=== PATIENT | female | born 1990 | race Caucasian/White ===

== ENCOUNTER 2019-05-19 05:11 | Inpatient (IN) ==
[2019-05-19] MEDS ORDERED: STADOL IV PRN (05:19)
[2019-05-19] MEDS ORDERED: ZOFRAN IV PRN (05:19)
[2019-05-19] MEDS ORDERED: TYLENOL PO PRN (05:19)
[2019-05-19] MEDS ORDERED: PEPCID IV PRN (05:19)
[2019-05-19] MEDS ORDERED: PEPCID PO PRN ×2 (05:19)
[2019-05-19] MEDS ORDERED: REGLAN PO PRN (05:19)
[2019-05-19] MEDS ORDERED: MINERAL OIL TOP PRN (05:23)
[2019-05-19] MEDS ORDERED: XYLOCAINE-MPF 1% INJ PRN ×2 (05:23→11:58)
[2019-05-19] MEDS ORDERED: PITOCIN 30 UNITS/NS 30 UNIT/500 ML IV.SOLN IV SCH ×2 (05:30→12:00)
[2019-05-19] MEDS ORDERED: SODIUM CHLORIDE 0.9% INJ SCH (05:30)
[2019-05-19 05:40] LABS: URINE SOURCE VOIDED
[2019-05-19 05:43] LABS: BILIRUBIN URINE NEGATIVE (NEGATIVE); BLOOD URINE NEGATIVE (NEGATIVE); COLOR STRAW; GLUCOSE URINE NEGATIVE (NEGATIVE); KETONE URINE NEGATIVE (NEGATIVE); LEUKOCYTES URINE NEGATIVE (NEGATIVE); NITRITE URINE NEGATIVE (NEGATIVE); PH URINE 6.5; PROTEIN URINE NEGATIVE (NEGATIVE); SP GRAVITY URINE 1.008; TURBIDITY URINE CLEAR (CLEAR); UROBILINOGEN URINE NORMAL (NORMAL)
[2019-05-19] MEDS: LR 1,000 ML IV SCH ×3 (05:45→11:07)
[2019-05-19 05:53] LABS: UR AMPHETAMINES QUAL NONE DETECTED (NONE DETECT); UR BARBITUATES QUAL NONE DETECTED (NONE DETECT); UR BENZODIAZEPIN QUAL NONE DETECTED (NONE DETECT); UR CANNABINOIDS QUAL NONE DETECTED (NONE DETECT); UR COCAINE QUAL NONE DETECTED (NONE DETECT); UR METHADONE QUAL NONE DETECTED (NONE DETECT); UR OPIATES QUAL NONE DETECTED (NONE DETECT); UR OXYCODONE QUAL NONE DETECTED (NONE DETECT); UR PCP QUAL NONE DETECTED (NONE DETECT)
[2019-05-19 06:11] LABS: BASO# 0.02 X1000 (0.0-0.2); BASO% 0.2 % (0.0-0.8); EOS# 0.07 X1000 (0.0-0.7); EOS% 0.8 % (0.0-10.0); HEMOGLOBIN 10.5 g/dL (12.0-16.0); IMM GRAN# 0.03 X1000 (0.0-0.04); IMM GRAN% 0.4 % (0.0-0.5); LYMPH# 2.18 X1000 (1.2-3.4); LYMPH% 26.4 % (20.5-51.1); MCH 27.9 PG (27-31); MCHC 31.8 g/dL (33-37); MCV 87.5 FL (81-99); MONO# 0.46 X1000 (0.11-0.59); MONO% 5.6 % (1.7-9.3); MPV 11.6 FL (7.4-10.4); NEUT# 5.51 X1000 (1.4-6.5); NEUT% 66.6 % (42.2-75.2); PLT 194 X1000 (130-400); RBC 3.77 XMIL (4.2-5.4); RDW 13.9 % (11.5-14.5); WBC 8.27 X1000 (4.8-10.8)
[2019-05-19] MEDS ORDERED: NAROPIN 0.2% INJ ONE (07:45)
[2019-05-19] MEDS ORDERED: NEO-SYNEPHRINE INJ ONE (07:45)
[2019-05-19] MEDS ORDERED: FENTANYL IV ONE (07:45)
--- NOTE | 2019-05-19 07:57 | HISTORY AND PHYSICAL ---
HISTORY OF PRESENT ILLNESS: The patient is a 29-year-old white female, G 10, P 5, A 4 at 39 weeks gestation with a favorable cervix, who was scheduled for induction of labor. Group B strep culture was negative. care significant for late care, otherwise unremarkable. Rh type was positive. PAST MEDICAL HISTORY: Unremarkable. PAST SURGICAL HISTORY: None. PAST OB HISTORY: G 10, P 5, A 4. Five spontaneous vaginal deliveries. POSTPARTUM RN HISTORY: Menarche at age 12. REVIEW OF SYSTEMS: Significant for asthma. FAMILY HISTORY: Significant for diabetes, heart disease, breast cancer, pancreatic cancer, colon cancer. SOCIAL HISTORY: Tobacco use: 5 cigarettes per day. Alcohol use: None. MEDICATIONS: Celexa 20 mg daily, vitamin. ALLERGIES: Penicillin. PHYSICAL EXAMINATION: VITAL SIGNS: Height 5 feet 5 inches, weight 164 pounds, temperature 97.0 degrees, blood pressure 122/72, pulse 60, respirations 18, heart rate in the 130s with positive accelerations. HEENT: Pupils equal, round, reactive to light and accommodation. Extraocular movements intact. Oropharynx clear. NECK: Supple. No thyromegaly. LUNGS: Clear to auscultation. HEART: Regular rate and rhythm. ABDOMEN: Gravid, nontender. Cervix was 3 cm dilated, 90% effaced, -2 station. The patient had a spontaneous rupture of membranes with clear fluid at 0710 hours on 05/19/2019. EXTREMITIES: No clubbing, cyanosis or edema noted. NEUROLOGIC: Cranial nerves 2-12 grossly intact. Motor 5/5. DTRs 2+ bilaterally. Hemoglobin on her initial labs was noted to be low at 10.5. ASSESSMENT: 1. A 29-year-old, white female, 10, para 5, abortus 4 at 39 weeks gestation for induction of labor with spontaneous rupture of membranes. Anticipate vaginal delivery. Patient may have epidural when desired. 2. Tobacco use. 3. Anemia. PLAN: lron after delivery. cc: Shakeel Elizabeth III, MD
[2019-05-19] MEDS ORDERED: FENTANYL-BUPIV-NS 500 MCG-0.125% 250 ML EPIDURAL SCH (08:00)
[2019-05-19] MEDS ORDERED: ATARAX PO PRN (11:58)
[2019-05-19] MEDS ORDERED: NORCO-5 PO PRN (11:58)
[2019-05-19] MEDS ORDERED: PITOCIN IM PRN (11:58)
[2019-05-19] MEDS ORDERED: CYTOTEC PO PRN (11:58)
[2019-05-19] MEDS ORDERED: MINERAL OIL PO PRN (11:58)
[2019-05-19] MEDS ORDERED: PERI MEDS (DERMOPLAST/NUPERCAINAL/TUCKS) MISC PRN (11:58)
[2019-05-19] MEDS ORDERED: BOOSTRIX VACCINE IM ONE (11:58)
[2019-05-19] MEDS ORDERED: BENADRYL IV PRN (11:58)
[2019-05-19] MEDS ORDERED: M-M-R II VACCINE SUBQ ONE (11:58)
[2019-05-19] MEDS ORDERED: HYDROXYZINE IM PRN (11:58)
[2019-05-19] MEDS ORDERED: AMBIEN PO PRN (11:58)
[2019-05-19] MEDS ORDERED: BENADRYL PO PRN (11:58)
[2019-05-19] MEDS ORDERED: PITOCIN 20 UNITS/NS 20 UNITS/1,000 ML IV.SOLN IV SCH (12:00)
--- NOTE | 2019-05-19 12:46 | OPERATIVE NOTE ---
PROCEDURE DATE: 05/19/2019 DELIVERY NOTE: The patient progressed to complete pushing, and had spontaneous vaginal delivery of a male infant, 7 pounds 13 ounces, with Apgars of 8 and 9 at 11:43 on 05/19/2019 over intact perineum. Cord blood sample was obtained at this time. Placenta was delivered intact with 3- vessel cord. ANESTHESIA: Epidural. ESTIMATED BLOOD LOSS: 200 mL. cc: Shakeel Elizabeth III, MD
[2019-05-19] MEDS: NORCO-10 PO PRN ×2 (14:41→23:44)
[2019-05-19] MEDS: MOTRIN PO PRN ×2 (14:42→23:44)
[2019-05-19] MEDS: PERICOLACE PO SCH (23:44)
[2019-05-20 04:59] LABS: BASO# 0.02 X1000 (0.0-0.2); BASO% 0.2 % (0.0-0.8); EOS# 0.15 X1000 (0.0-0.7); EOS% 1.7 % (0.0-10.0); HEMATOCRIT 32.6 % (37.0-47.0); HEMOGLOBIN 10.4 g/dL (12.0-16.0); IMM GRAN# 0.02 X1000 (0.0-0.04); IMM GRAN% 0.2 % (0.0-0.5); LYMPH# 2.69 X1000 (1.2-3.4); LYMPH% 30.5 % (20.5-51.1); MCH 28.2 PG (27-31); MCHC 31.9 g/dL (33-37); MCV 88.3 FL (81-99); MONO# 0.46 X1000 (0.11-0.59); MONO% 5.2 % (1.7-9.3); MPV 11.7 FL (7.4-10.4); NEUT# 5.49 X1000 (1.4-6.5); NEUT% 62.2 % (42.2-75.2); PLT 176 X1000 (130-400); RBC 3.69 XMIL (4.2-5.4); RDW 13.9 % (11.5-14.5); WBC 8.83 X1000 (4.8-10.8)
[2019-05-20] MEDS: MOTRIN PO PRN ×2 (08:19→15:58)
[2019-05-20] MEDS: NORCO-10 PO PRN ×3 (08:20→21:43)
[2019-05-20] MEDS: CELEXA PO SCH (08:20)
[2019-05-20] MEDS ORDERED: PNEUMOVAX 23 IM ONE (16:15)
[2019-05-20] MEDS: PERICOLACE PO SCH (21:44)
[2019-05-21] MEDS: MOTRIN PO PRN ×2 (00:10→09:21)
--- NOTE | 2019-05-21 08:10 | DISCHARGE SUMMARY ---
ADMISSION DATE: 05/19/2019 DISCHARGE DATE: 05/21/2019 ADMITTING DIAGNOSES: 1. Term . 2. Induction of labor. 3. Grand multiparity. DISCHARGE DIAGNOSES: 1. Term . 2. Induction of labor. 3. Grand multiparity. 4. Liveborn delivered. BRIEF HISTORY AND HOSPITAL COURSE: The patient is a 25-year-old, 10, para 5, who presented to Labor and Delivery for induction of labor with a favorable cervix. She underwent rupture of membranes and spontaneous vaginal delivery following that. Please see separate delivery note. Her course was uncomplicated. day #1, she is afebrile with stable vital signs. She is ambulating, voiding, tolerating a regular diet. She has hemoglobin 10.4 down from 10.5. On day #2, ambulating, voiding, tolerating a regular diet. Vital signs stable, afebrile. She is discharged home in stable condition. She is asked to follow up in the office in 6 weeks. Call the office for pain, fever greater than 100.4. Maintain pelvic rest and regular diet. Continue vitamins and iron. A prescription for Motrin provided. cc: Shakeel Elizabeth III, MD
[2019-05-21] MEDS ORDERED: DEPO-PROVERA IM ONE (09:00)
[2019-05-21] MEDS: CELEXA PO SCH (09:00)
[2019-05-21] MEDS: NORCO-10 PO PRN (09:21)
[2019-05-21 10:52] VITALS: BP 131/74
== END 2019-05-21 09:58 | disposition home or self-care (01) | DRG 807 ==
LOC: LD 05:11
PROVIDERS: ADMIT Obstetrics & Gynecology; ATTEND Obstetrics & Gynecology